=== PATIENT | male | born 1985 | race Caucasian/White ===

== ENCOUNTER 2020-01-23 15:22 | Emergency (ER) | payer MEDICAID ==
[~2020-01-23] VITALS: Ht 172.7 cm; Wt 131.5 kg
[2020-01-23] MEDS ORDERED: METFORMIN HCL500 M3 PO (15:40)
[2020-01-23] MEDS ORDERED: GLIPIZIDE 10 MG10 MG PO (15:40)
[2020-01-23 15:58] LABS: URINE BILIRUBIN NEGATIVE (Negative); URINE BLOOD TRACE (Negative); URINE CLARITY CLEAR; URINE COLOR YELLOW; URINE GLUCOSE-RANDOM 3+ (Negative); URINE KETONES NEGATIVE (Negative); URINE LEUKOCYTES-REFLEX 1+ (Negative); URINE NITRITE-REFLEX NEGATIVE (Negative); URINE PROTEIN NEGATIVE (Negative); URINE UROBILINOGEN 0.2 E.U./dl (0.2-1.0)
[2020-01-23 16:06] LABS: MUCUS None Seen strn/LPF (None Seen); SQUAMOUS 4-10 Moderate /LPF (0-3)
[2020-01-23 16:07] LABS: BACTERIA-REFLEX 1-9 Few /HPF (None Seen); CASTS None Seen /LPF (None Seen); CRYSTALS None Seen /LPF (None Seen); URINE RBC 0-2 Rare /HPF (0-2); URINE WBC-REFLEX 6-15 Few /HPF (0-5); YEAST-REFLEX Present (None Seen)
[2020-01-23] MEDS ORDERED: CIPRO500 MG PO (16:26)
[2020-01-23 16:55] VITALS: BP 126/95
== END 2020-01-23 16:56 | disposition home or self-care (01) ==
LOC: M.ERS 15:22
PROVIDERS: Nurse Practitioner Family
DX: N34.2 Other urethritis (principal); E11.9 Type 2 diabetes mellitus without complications; Z79.899 Other long term (current) drug therapy